=== PATIENT | female | born 1940 | race Caucasian/White ===

== ENCOUNTER 2021-09-19 10:59 | Outpatient (CLI) | payer MEDICARE | END 2021-09-19 11:00 | disposition home or self-care (01) | LOC: LABBT 10:59 | PROVIDERS: ATTEND Orthopaedic Surgery | DX: Z01.818 Encounter for other preprocedural examination (principal); M17.0 Bilateral primary osteoarthritis of knee; Z20.822 Contact with and (suspected) exposure to COVID-19 | CPT/HCPCS: 71046; 80048; 82947; 85025; 85610; 86850; 86900; 86901; 87081; 93005; U0003; U0005; 81003; 81015; 93010 ==

== ENCOUNTER 2021-09-24 05:30 | Observation (INO) | payer MEDICARE ==
[2021-09-19 12:58] LABS: #Eosinphils 0.1 10x3/uL (0.0-0.5); #Monocytes 0.4 10x3/uL (0.0-1.1); %Basophils 0.6 % (0.0-2.0); %Eosinophils 1.7 % (0.0-6.0); %Lymphocytes 32.9 % (18.0-47.0); %Monocytes 6.2 % (0.0-10.0); %Neutrophils 58.2 % (40.0-75.0); Hemoglobin 12.5 g/dL (12.0-15.5); Mean Corpuscular HGB CONC 32.5 g/dL (32.0-36.0); Mean Corpuscular Volume 92.3 fl (81.6-98.3); Platelet Count 293 10x3/uL (150-450); RBC Distribution Width 14.4 % (11.5-14.5); Red Blood Cell (RBC) Count 4.17 10x6/uL (3.90-5.03); White Blood Cell (WBC) Count 6.9 10x3/uL (3.5-10.5)
[2021-09-19 13:22] LABS: INR-International Normal Ratio 0.9; Prothrombin Time 10.4 sec (9.5-12.1)
[2021-09-19 13:26] LABS: Anion Gap 12 mmol/L (10-20); BUN (Urea Nitrogen) 12 mg/dL (9.8-20.1); Calc. Creatinine Clearance 0 mL/min (70-130); Calcium 8.9 mg/dL (7.8-10.44); Carbon Dioxide 29 mmol/L (23-31); Chloride 105 mmol/L (98-107); Glucose 89 mg/dL (83-110); Potassium 4.2 mmol/L (3.5-5.1); Sodium 142 mmol/L (136-145)
[2021-09-19 15:59] LABS: Bilirubin Neg (Negative); Blood, Urine Negative (Negative); Clarity Clear (Clear); Glucose, Urine (Dipstick) Normal (Negative); Ketone, Urine Negative (Negative); Leukocyte 500 (Negative); Nitrite Negative (Negative); Protein, Urine (Dipstick) Negative (Neg-Trace); Urobilinogen Normal mg/dL (Less than 2); pH, Urine 6.5 (5.0-9.0)
[2021-09-19 16:17] LABS: Bacteria/HPF Rare-Few HPF (None Seen); RBC/HPF None Seen HPF (0-3); Squamous Epithelial 0-3 HPF (0-3); WBC/HPF 0-3 HPF (0-3)
[2021-09-20 00:13] LABS: SARS-CoV-2 PCR by NAA Not Detected (NotDetected)
[2021-09-24] MEDS ORDERED: Sodium Chloride 0.9% 100 ML ONE (06:00)
[2021-09-24] MEDS ORDERED: Tranexamic Acid 1,000 MG/10 ML VIAL ONE ×2 (06:00→09:34)
[2021-09-24] MEDS ORDERED: ceFAZolin 2 GM/DEX 5% 100 ML BAG ONE (06:00)
[2021-09-24] MEDS ORDERED: Vancomycin 1.5 GRAM/300 ML BAG 1.5 GM in Premix Bag 1 BAG IVPB SCH (06:15)
[2021-09-24] MEDS ORDERED: Lidocaine 1% PF 5 ML VIAL ONE ×2 (06:40→06:42)
[2021-09-24] MEDS ORDERED: Midazolam HCl 2 mg/2 ml Vial ONE (06:40)
[2021-09-24] MEDS ORDERED: Fentanyl 100 MCG/2 ML VIAL ONE ×4 (06:40→09:34)
[2021-09-24] MEDS ORDERED: Ondansetron PF 4 MG/2 ML Vial ONE (06:42)
[2021-09-24] MEDS ORDERED: Dexamethasone 20 MG/5 ML VIAL ONE (06:42)
[2021-09-24] MEDS ORDERED: Bupivacaine HCl 0.5%/Epinephrine 1:200,000/PF 30 ml Vial ONE (06:42)
[2021-09-24] MEDS ORDERED: PROPOFOL 200 MG/20 ML VIAL ONE (06:42)
[2021-09-24] MEDS ORDERED: Lidocaine 1% (PF) 30 ML VIAL ONE (07:06)
[2021-09-24] MEDS ORDERED: methylPREDNISolone Acetate 40 mg/ml Vial ONE (07:06)
[2021-09-24] MEDS ORDERED: Fentanyl 100 MCG/2 ML VIAL IV PRN (07:51)
[2021-09-24] MEDS ORDERED: Bupivacaine PF 0.5% 30 ML VIAL ONE (07:57)
[2021-09-24] MEDS ORDERED: Ondansetron PF 4 MG/2 ML Vial IVP PRN ×2 (08:00→09:22)
[2021-09-24] MEDS ORDERED: HYDROcodone/Acetaminophen 10/325 mg Tablet PO PRN ×2 (08:00)
[2021-09-24] MEDS ORDERED: Zolpidem Tartrate 5 MG TAB PO PRN ×2 (08:00→09:22)
[2021-09-24] MEDS ORDERED: Promethazine HCl 25 MG/ML VIAL IM PRN ×3 (08:00→09:22)
[2021-09-24] MEDS ORDERED: Ropivacaine 0.2% 550 ML 550 ML NERVE BLCK SCH (08:00)
[2021-09-24] MEDS ORDERED: traMADol HCl 50 MG TAB PO PRN ×2 (08:00)
[2021-09-24] MEDS ORDERED: Ondansetron HCl/PF 4 MG/2 ML Vial IVP PRN (09:08)
[2021-09-24] MEDS ORDERED: Promethazine HCl 25 MG/ML VIAL IVPB PRN (09:08)
[2021-09-24] MEDS ORDERED: Fentanyl 100 MCG/2 ML VIAL SLOW IVP PRN (09:22)
[2021-09-24] MEDS ORDERED: diphenhydrAMINE 25 MG CAP PO PRN (09:22)
[2021-09-24] MEDS ORDERED: Acetaminophen 325 MG TAB PO PRN (09:22)
[2021-09-24] MEDS ORDERED: Tranexamic Acid 1,000 MG in Sodium Chloride 0.9% 100 ML IVPB SCH (09:30)
[2021-09-24] MEDS: Ketorolac Tromethamine 30 MG/ML VIAL IVP SCH ×3 (11:41→22:34)
[2021-09-24] MEDS: Sodium Chloride 0.9% 1,000 ML IV SCH ×2 (11:44→22:39)
[2021-09-24] MEDS: ceFAZolin Sodium/D5W 2 GM in Premix Bag 1 BAG IVPB SCH ×2 (14:08→22:34)
[2021-09-24 15:34] VITALS: BMI 38.7
[2021-09-24] MEDS ORDERED: Vancomycin HCl 1.5 GM in Sodium Chloride 0.9% 250 ML 300 ML IVPB SCH ×2 (20:00→23:00)
[2021-09-24] MEDS: Aspirin 81 mg Enteric Coated Tablet PO SCH (22:39)
[2021-09-25 06:22] LABS: Hemoglobin 11.2 g/dL (12.0-16.0); Mean Corpuscular HGB CONC 32.7 g/dL (32.0-36.0); Mean Corpuscular Volume 94.7 fL (78.0-98.0); Mean Platelet Volume 7.6 fL (7.4-10.4); Platelet Count 267 thou/uL (130-400); White Blood Cell (WBC) Count 16.1 thou/uL (4.8-10.8)
[2021-09-25] MEDS: Ketorolac Tromethamine 30 MG/ML VIAL IVP SCH ×2 (06:28→12:42)
[2021-09-25] MEDS: Sodium Chloride 0.9% 1,000 ML IV SCH ×2 (06:30→13:51)
[2021-09-25] MEDS ORDERED: Ferrous Gluconate 324 MG TAB PO SCH (08:00)
[2021-09-25] MEDS: Aspirin 81 mg Enteric Coated Tablet PO SCH (08:32)
[2021-09-25] MEDS ORDERED: Multivitamin W/ Minerals 1 TAB PO SCH (09:00)
[2021-09-25] MEDS ORDERED: Senokot S 8.6-50 MG TAB PO SCH (09:00)
[2021-09-25 12:49] VITALS: BP 131/77; TEMP 97.9
== END 2021-09-25 15:30 | disposition home or self-care (01) ==
LOC: SDC 05:30 → SJJU 10:30 → INTOOBSV 10:30
PROVIDERS: ADMIT Orthopaedic Surgery; ATTEND Orthopaedic Surgery
PROC: 0SRC0JZ Replacement of Right Knee Joint with Synthetic Substitute, Open Approach (ICD-10-PCS; principal; 2021-09-24)
PROC: 3E0U33Z Introduction of Anti-inflammatory into Joints, Percutaneous Approach (ICD-10-PCS; 2021-09-24)
PROC: 3E0T3BZ Introduction of Anesthetic Agent into Peripheral Nerves and Plexi, Percutaneous Approach (ICD-10-PCS; 2021-09-24)
DX: M17.0 Bilateral primary osteoarthritis of knee (principal); Z88.1 Allergy status to other antibiotic agents; Z88.2 Allergy status to sulfonamides; I10 Essential (primary) hypertension; Z79.899 Other long term (current) drug therapy; G47.33 Obstructive sleep apnea (adult) (pediatric); I25.10 Atherosclerotic heart disease of native coronary artery without angina pectoris
CPT/HCPCS: 20610; 27447; 64448; 73560; 80048; 82947; 85025; 85027; 85610; 86850; 86900; 86901; 96374; 96375; 96376 ×2; 97110 ×2; 97116 ×2; 97530; A4306; C1713; C1776; G0378 ×2; U0003; U0005; 36415; 81003; 81015; J1100; J1885; J2001; J2250; J2405; J2704; J2795; J2920; J3010; J3370; J3490; J7050; S0020

== ENCOUNTER 2023-01-29 09:47 | Outpatient (CLI) | payer MEDICARE | END 2023-01-29 09:48 | disposition home or self-care (01) | LOC: LABBT 09:47 | PROVIDERS: ATTEND Orthopaedic Surgery | DX: Z01.818 Encounter for other preprocedural examination (principal); M17.12 Unilateral primary osteoarthritis, left knee | CPT/HCPCS: 71046; 93005; 93010 ==

== ENCOUNTER 2023-02-03 06:56 | Observation (INO) | payer MEDICARE ==
[2023-01-29 10:17] VITALS: BMI 41.1
[2023-01-29 10:57] LABS: Bilirubin Neg (Negative); Blood, Urine Negative (Negative); Glucose, Urine (Dipstick) Normal (Negative); Ketone, Urine Negative (Negative); Leukocyte 100 (Negative); Nitrite Negative (Negative); Protein, Urine (Dipstick) Negative (Neg-Trace); Specific Gravity, Urine 1.005 (1.005-1.030); Urobilinogen Normal mg/dL (Less than 2)
[2023-01-29 11:05] LABS: #Eosinphils 0.1 10x3/uL (0.0-0.5); #Monocytes 0.5 10x3/uL (0.0-1.1); %Basophils 0.3 % (0.0-2.0); %Eosinophils 0.9 % (0.0-6.0); %Lymphocytes 23.3 % (18.0-47.0); %Monocytes 5.6 % (0.0-10.0); %Neutrophils 69.7 % (40.0-75.0); Hemoglobin 12.8 g/dL (12.0-15.5); Mean Corpuscular HGB CONC 32.6 g/dL (32.0-36.0); Mean Corpuscular Hemoglobin 30.7 pg (27.0-33.0); Mean Corpuscular Volume 94.2 fl (81.6-98.3); Platelet Count 303 10x3/uL (150-450); RBC Distribution Width 13.8 % (11.5-14.5); Red Blood Cell (RBC) Count 4.17 10x6/uL (3.90-5.03); White Blood Cell (WBC) Count 8.6 10x3/uL (3.5-10.5)
[2023-01-29 11:08] LABS: Clarity Hazy (Clear)
[2023-01-29 11:24] LABS: INR-International Normal Ratio 0.9
[2023-01-29 11:27] LABS: Anion Gap 13 mmol/L (10-20); BUN (Urea Nitrogen) 13 mg/dL (9.8-20.1); Calc. Creatinine Clearance 0 mL/min (70-130); Calcium 8.9 mg/dL (7.8-10.44); Carbon Dioxide 28 mmol/L (23-31); Chloride 105 mmol/L (98-107); Estimated GFR 77; Glucose 89 mg/dL (83-110); Potassium 4.3 mmol/L (3.5-5.1); Sodium 142 mmol/L (136-145)
[2023-02-03] MEDS ORDERED: Vancomycin (BATCH) 1.5 GRAM/300 ML BAG ONE (08:02)
[2023-02-03] MEDS ORDERED: Sodium Chloride 0.9% 100 ML ONE ×2 (08:02→09:36)
[2023-02-03] MEDS ORDERED: Tranexamic Acid 1,000 MG/10 ML VIAL ONE ×2 (08:02→12:07)
[2023-02-03] MEDS ORDERED: Bupivacaine PF 0.5% 30 ML VIAL ONE (08:38)
[2023-02-03] MEDS ORDERED: fentaNYL 50 mcg/mL 1 mL Vial ONE ×4 (08:38→12:47)
[2023-02-03] MEDS ORDERED: Midazolam HCl 2 mg/2 ml Vial ONE (08:38)
[2023-02-03] MEDS ORDERED: EPINEPHrine 1 MG/ML AMP ONE (08:38)
[2023-02-03] MEDS ORDERED: fentaNYL 50 mcg/mL 1 mL Vial SLOW IVP PRN ×2 (09:09→11:57)
[2023-02-03] MEDS ORDERED: traMADol HCl 50 MG TAB PO PRN (09:15)
[2023-02-03] MEDS ORDERED: HYDROcodone/Acetaminophen 10/325 mg Tablet PO PRN ×2 (09:15)
[2023-02-03] MEDS ORDERED: Ondansetron PF 4 MG/2 ML Vial IVP PRN ×2 (09:15→11:34)
[2023-02-03] MEDS ORDERED: Ropivacaine 0.2% 550 ML 550 ML NERVE BLCK SCH (09:15)
[2023-02-03] MEDS ORDERED: Promethazine HCl 25 MG/ML VIAL IM PRN ×3 (09:15→11:55)
[2023-02-03] MEDS ORDERED: Zolpidem Tartrate 5 MG TAB PO PRN ×2 (09:15→11:34)
[2023-02-03] MEDS ORDERED: fentaNYL PF 100 MCG/2 ML SYRINGE ONE (09:26)
[2023-02-03] MEDS ORDERED: CEFAZOLIN 2 GM VIAL ONE (09:36)
[2023-02-03] MEDS ORDERED: Dexamethasone 20 MG/5 ML VIAL ONE (09:49)
[2023-02-03] MEDS ORDERED: PROPOFOL 200 MG/20 ML VIAL ONE (09:49)
[2023-02-03] MEDS ORDERED: Lidocaine 1% PF 5 ML VIAL ONE (09:49)
[2023-02-03] MEDS ORDERED: Ondansetron PF 4 MG/2 ML Vial ONE (09:49)
[2023-02-03] MEDS ORDERED: Bupivacaine 0.25% HCL 30 ML VIAL ONE (10:13)
[2023-02-03] MEDS ORDERED: Acetaminophen 325 MG TAB PO PRN (11:34)
[2023-02-03] MEDS ORDERED: diphenhydrAMINE 25 MG CAP PO PRN (11:34)
[2023-02-03] MEDS ORDERED: Tranexamic Acid 1,000 MG in Sodium Chloride 0.9% 100 ML IVPB SCH (11:45)
[2023-02-03] MEDS ORDERED: PACU-Morphine 4MG/ML VIAL SLOW IVP PRN (11:55)
[2023-02-03] MEDS ORDERED: Ondansetron HCl/PF 4 MG/2 ML Vial IVP PRN (11:55)
[2023-02-03] MEDS ORDERED: Ketorolac Tromethamine 30 MG/ML VIAL ONE (12:06)
[2023-02-03] MEDS: Ketorolac Tromethamine 30 MG/ML VIAL IVP SCH ×3 (12:13→23:44)
[2023-02-03] MEDS: CEFAZOLIN 2 GM in Sodium Chloride 0.9% 100 ML IVPB SCH (18:02)
[2023-02-03] MEDS: Sodium Chloride 0.9% 1,000 ML IV SCH ×2 (19:50→22:04)
[2023-02-03] MEDS: Aspirin 81 mg Enteric Coated Tablet PO SCH (19:52)
[2023-02-03] MEDS: Senokot S 8.6-50 MG TAB PO SCH (19:52)
[2023-02-03] MEDS: Calcium Carbonate 600 MG TAB PO SCH (19:52)
[2023-02-03] MEDS: Ferrous Gluconate 324 MG TAB PO SCH (19:53)
[2023-02-03] MEDS ORDERED: Vancomycin 1.5 GRAM/300 ML BAG 1.5 GM in Premix Bag 1 BAG IVPB SCH (20:00)
[2023-02-03] MEDS ORDERED: Atorvastatin Calcium 10 MG TAB PO SCH (21:00)
[2023-02-03] MEDS ORDERED: Raloxifene 60 MG TAB PO SCH (21:00)
[2023-02-03] MEDS: traMADol HCl 50 MG TAB PO PRN (23:44)
[2023-02-04] MEDS: Sodium Chloride 0.9% 1,000 ML IV SCH (00:04)
[2023-02-04] MEDS: CEFAZOLIN 2 GM in Sodium Chloride 0.9% 100 ML IVPB SCH (02:22)
[2023-02-04] MEDS: Ketorolac Tromethamine 30 MG/ML VIAL IVP SCH ×2 (05:04→11:37)
[2023-02-04 07:43] LABS: Hemoglobin 10.7 g/dL (12.0-16.0); Mean Corpuscular HGB CONC 31.8 g/dL (32.0-36.0); Mean Corpuscular Hemoglobin 30.8 pg (27.0-31.0); Mean Corpuscular Volume 96.8 fl (78.0-98.0); Mean Platelet Volume 9.8 fL (7.4-10.4); Platelet Count 252 10x3/uL (130-400); RBC Distribution Width 13.9 % (11.5-14.5); Red Blood Cell (RBC) Count 3.47 mill/uL (4.20-5.40); White Blood Cell (WBC) Count 11.8 10x3/uL (4.8-10.8)
[2023-02-04] MEDS: traMADol HCl 50 MG TAB PO PRN (07:46)
[2023-02-04] MEDS ORDERED: Loratadine 10 MG TAB PO SCH (09:00)
[2023-02-04] MEDS ORDERED: Fluticasone Propionate Nasal Spray 16 gm Bottle NASAL SCH (09:00)
[2023-02-04] MEDS ORDERED: MULTIVITAMIN PO SCH (09:00)
[2023-02-04] MEDS ORDERED: Multivitamin W/ Minerals 1 TAB PO SCH (09:00)
[2023-02-04] MEDS ORDERED: Torsemide 20 MG TAB PO SCH (09:00)
[2023-02-04] MEDS ORDERED: Bupropion 150 MG XL TAB PO SCH (09:00)
[2023-02-04] MEDS: Calcium Carbonate 600 MG TAB PO SCH (09:01)
[2023-02-04] MEDS: Ferrous Gluconate 324 MG TAB PO SCH (09:01)
[2023-02-04] MEDS: Senokot S 8.6-50 MG TAB PO SCH (09:01)
[2023-02-04] MEDS: Aspirin 81 mg Enteric Coated Tablet PO SCH (09:01)
[2023-02-04 11:41] VITALS: BP 146/79; TEMP 98.4
[2023-02-05] MEDS ORDERED: Estrogens, Conjugated 30 GM TUBE VAG SCH (09:00)
== END 2023-02-04 15:16 | disposition home or self-care (01) ==
LOC: SDC 06:56 → SJJU 14:11
PROVIDERS: ADMIT Orthopaedic Surgery; ATTEND Orthopaedic Surgery
PROC: 0SRD0J9 Replacement of Left Knee Joint with Synthetic Substitute, Cemented, Open Approach (ICD-10-PCS; principal; 2023-02-03)
DX: M17.12 Unilateral primary osteoarthritis, left knee (principal); I10 Essential (primary) hypertension; I25.10 Atherosclerotic heart disease of native coronary artery without angina pectoris; Z79.810 Long term (current) use of selective estrogen receptor modulators (SERMs); Z79.899 Other long term (current) drug therapy; Z88.0 Allergy status to penicillin; Z88.1 Allergy status to other antibiotic agents; Z88.2 Allergy status to sulfonamides; Z96.651 Presence of right artificial knee joint
CPT/HCPCS: 20985; 27447; 80048; 81003; 85025; 85027; 85610; 86850; 86900; 86901; 87081; 96365; 96367; 96375; 96376 ×2; 97110 ×2; 97116 ×2; 97530; A4306; C1713; C1776; G0378 ×2; J3010; J3370; 36415; J0171; J1100; J1885; J2250; J2405; J2704; J2795; J3490; S0020